=== PATIENT | female | born 1985 | race American Indian/Alaskan Native ===

== ENCOUNTER 2022-04-03 00:18 | Inpatient (IN) | payer OTHER ==
[~2022-04-03 00:18] MED LIST: LACTATED RINGERS 1,000 ML ONE
[2022-04-03 00:36] LABS: Basophils # (Auto) 0.1 K/mm3 (0.0-0.1); Basophils % (Auto) 0.6 % (0.0-1.8); Eosinophils # (Auto) 0.1 K/mm3 (0.0-0.4); Hematocrit 39.9 % (30.3-42.9); Hemoglobin 13.3 gm/dl (10.1-14.3); Lymphocytes % (Auto) 11.4 % (13.4-35.0); Mean Corpuscular HGB Conc 33 % (30-34); Mean Corpuscular Volume 90 fl (79-97); Monocytes # (Auto) 0.8 K/mm3 (0.0-0.8); Monocytes % (Auto) 8.6 % (0.0-7.3); Platelet Count 215 K/mm3 (140-440); Red Blood Count 4.43 M/mm3 (3.65-5.03); Red Cell Distribution Width 14.6 % (13.2-15.2)
[2022-04-03] MEDS ORDERED: ePHEDrine SULFATE 50 MG/1 ML INJ ONE (00:47)
[2022-04-03] MEDS ORDERED: BUPIVACAINE/PF (0.25%) 2.5 MG/ML 10 ML VIAL INFILTRATI ONE (00:50)
--- NOTE | 2022-04-03 01:09 | History and Physical Report ---
History of Present Illness Date of examination: 04/02/22 Date of admission: 04/02/2022 Chief complaint: Contractions and leaking of fluid History of present illness: 36-year-old at 36-2/7 weeks gestation presents to OB triage reporting regular and painful uterine contractions followed by rupture membranes. There is no vaginal bleeding there is good movement. In OB triage, the cervical exam was 9 cm dilated. She is admitted to labor and delivery for management of labor. Past History Past Medical History: no pertinent history Past Surgical History: no surgical history Family/Genetic History: none Social history: no significant social history - Obstetrical History Expected Date of Delivery: 04/28/22 Actual Gestation: 36 Week(s) 3 Day(s) : 6 Para: 1 Hx # Term Pregnancies: 1 Spontaneous Abortions: 4 Medications and Allergies Allergies Allergy/AdvReac Type Severity Reaction Status Date / Time No Known Allergies Allergy Unverified 04/03/22 01:10 Review of Systems All systems: negative - Vital Signs Vital signs: Vital Signs Pulse Pulse Ox 85 98 04/03/22 00:25 04/03/22 00:25 Temp Pulse Resp BP Pulse Ox 97.9 F 81 20 137/70 99 04/03/22 00:28 04/03/22 01:08 04/03/22 00:28 04/03/22 01:08 04/03/22 01:05 - Physical Exam Breasts: Positive: normal Cardiovascular: Regular rate Lungs: Positive: Normal air movement Abdomen: Positive: normal appearance Genitourinary (Female): Positive: normal external genitalia, normal perenium Vulva: both: normal Vagina: Positive: normal moisture Uterus: Positive: enlarged Adnexa: both: normal Anus/Rectum: Positive: normal perianal skin Extremities: Positive: normal Deep Tendon Reflex Grade: Normal +2 - Obstetrical FHR: category 1 Uterine Contraction Monitor Mode: External Cervical Dilatation: 9 Cervical Effacement Percentage: 90 station: -2 Uterine Contraction Frequency (min): 5 Uterine Contraction Pattern: Regular Results Result Diagrams: 04/02/22 23:58 Abnormal lab results 04/02/22 04/03/22 Range/Units 23:58 00:06 Lymph % (Auto) 11.4 L (13.4-35.0) % [place] % (Auto) 8.6 H (0.0-7.3) % Lymph # (Auto) 1.0 L (1.2-5.4) K/mm3 Seg Neutrophils % 78.4 H (40.0-70.0) % Membranes Rupture Positive A (Negative) All other labs normal. Assessment and Plan - Patient Problems (1) 36 weeks gestation of Current Visit: Yes Status: Acute Plan to address problem: care is up-to-date at [facility]. The morning shift nurse is to call the office to obtain records during the morning shift. This patient's GBS status is unknown, and GBS culture was not drawn. As this patient is currently , prescribe penicillin for intrapartum GBS prophylaxis per 2010 CDC MMWR guidelines. (2) labor in third trimester Current Visit: Yes Status: Acute Plan to address problem: Etiology is unknown. At this gestational age, tocolysis and prolongation of latency is not recommended. Allow labor to progress. I anticipate normal spontaneous vaginal delivery. (3) AMA (advanced maternal age) multigravida 35+ Current Visit: Yes Status: Acute Plan to address problem: The patient states that she had a normal first trimester screening.
[2022-04-03] MEDS ORDERED: CARBOPROST TROMETHAMINE 250 MCG/1 ML INJ IM PRN (01:10)
[2022-04-03] MEDS ORDERED: BUTORPHANOL 2 MG/1 ML INJ IV PRN (01:10)
[2022-04-03] MEDS ORDERED: TERBUTALINE 1 MG/1 ML INJ SUB-Q PRN (01:10)
[2022-04-03] MEDS ORDERED: PENICILLIN G POTASSIUM 5 MIL.UNITS in SODIUM CHLORIDE 0.9% 100 ML IV ONE (01:10)
[2022-04-03] MEDS ORDERED: ACETAMINOPHEN 325 MG TAB PO PRN ×2 (01:10→06:17)
[2022-04-03] MEDS ORDERED: miSOPROStol 200 MCG TAB PR PRN (01:10)
[2022-04-03] MEDS ORDERED: ePHEDrine SULFATE 50 MG/1 ML INJ IV PRN ×2 (01:10→01:13)
[2022-04-03] MEDS ORDERED: METHYLERGONOVINE MALEATE 0.2 MG/ML VIAL IM PRN (01:10)
[2022-04-03] MEDS ORDERED: fentaNYL 100 MCG/2 ML INJ IV PRN (01:10)
[2022-04-03] MEDS ORDERED: NALOXONE 0.4 MG/1 ML INJ IV PRN (01:13)
[2022-04-03] MEDS ORDERED: OXYTOCIN DRIP 30,000 MILLIUNITS/500 ML BAG IV ONE (01:13)
[2022-04-03] MEDS ORDERED: LACTATED RINGERS 1,000 ML ONE (01:13)
[2022-04-03] MEDS ORDERED: fentaNYL-BUPIV 2 MCG/ML-0.125% 200 MCG/100 ML BAG EPIDURAL SCH (01:13)
--- NOTE | 2022-04-03 01:21 | Anesthesia Day of Surgery ---
Anesthesia Day of Surgery - Day of Surgery Patient Examined: Yes Patient H&P Reviewed: Yes Patient is NPO: Yes Beta Blockers: No Cardiac Clearance: No Pulmonary Clearance: No Michele's Test: N/A
--- NOTE | 2022-04-03 01:21 | Anesthesia Consultation ---
Anesthesia Consult and Med Hx Date of service: 04/03/22 - Airway Anesthetic Teeth Evaluation: Good ROM Head & Neck: Adequate Mental/Hyoid Distance: Adequate Mallampati Class: Class II Intubation Access Assessment: Probably Good - Pulmonary Exam CTA: Yes - Cardiac Exam Cardiac Exam: RRR - Pre-Operative Health Status ASA Pre-Surgery Classification: ASA2 Proposed Anesthetic Plan: Epidural - Pulmonary Hx Smoking: No Hx Asthma: No Hx Respiratory Symptoms: No SOB: No COPD: No Home Oxygen Therapy: No Hx Pneumonia: No Hx Sleep Apnea: No - Cardiovascular System Hx Hypertension: No Hx Coronary Artery Disease: No Hx Heart Attack/AMI: No Hx Angina: No Hx Percutaneous Transluminal Coronary Angioplasty (PTCA): No Hx Cardia Arrhythmia: No Hx Pacemaker: No Hx Internal Defibrillator: No Hx Valvular Heart Disease: No Hx Heart Murmur: No Hx Peripheral Vascular Disease: No - Central Nervous System Hx Neuromuscular Disorder: No Hx Seizures: No CVA: No Hx Back Pain: No Hx Psychiatric Problems: No - Gastrointestinal Hx Ulcer: No Hx Gastroesophageal Reflux Disease: No - Endocrine Hx Renal Disease: No Hx End Stage Renal Disease: No Hx Cirrhosis: No Hx Liver Disease: No Hx Insulin Dependent Diabetes: No Hx Non-Insulin Dependent Diabetes: No Hx Thyroid Disease: No Hx Hypothyroidism: No Hx Hyperthyroidism: No - Hematic Hx Anemia: No Hx Sickle Cell Disease: No - Other Systems Hx Alcohol Use: No Hx Substance Use: No Hx Cancer: No Hx Obesity: No
--- NOTE | 2022-04-03 01:22 | Progress Note ---
Labor Epidural - Labor Epidural Start Time: 00:58 Stop Time: 01:06 Performed by:: BRANDIE GATICA Procedure: Epidural Requested for Labor Pain. H&P and PT Chart reviewed and consent obtained. Time out performed and the procedure was explained, all questions answered. Patient was placed in a sitting position with monitors applied. The PTs back was prepped and draped in usual sterile fashion. The Skin was localized with 3 mL of 1% lidocaine at L3-L4. A 17-gauge Touhy epidural needle was advanced to MARIAN with saline at 7 cm and no blood/CSF was noted via epidural needle. Epidural catheter was advanced to 12 cm. There was negative aspiration for blood and CSF in the catheter and negative response to a test dose of 3 ml 1.5% lidocaine w/ Epi and a sterile dressing was applied Patient tolerated the procedure well and there were no immediate complications noted.
[2022-04-03] MEDS: LACTATED RINGERS 1,000 ML IV SCH ×2 (01:48→01:53)
[2022-04-03] MEDS ORDERED: OXYTOCIN DRIP 30 UNITS/500 ML BAG IV SCH ×2 (02:00)
[2022-04-03] MEDS ORDERED: PENICILLIN G POTASSIUM 2.5 MIL.UNITS in SODIUM CHLORIDE 0.9% 50 ML IV SCH (05:00)
[2022-04-03] MEDS ORDERED: WITCH HAZEL/ GLYCERIN PAD TP PRN (06:17)
[2022-04-03] MEDS ORDERED: BENZOCAINE/MENTHOL 20/0.5% TOP SPRAY 56 GM TP PRN (06:17)
[2022-04-03] MEDS ORDERED: HYDROcodone/ACETAMINOPHEN 5-325 MG TAB PO PRN (06:17)
[2022-04-03] MEDS ORDERED: LANOLIN/ZINC/DIMETHICONE (LANSINOH) 7 GM TP PRN (06:17)
[2022-04-03] MEDS ORDERED: MAGNESIUM HYDROXIDE (MOM) ORAL LIQD UDC PO PRN (06:17)
--- NOTE | 2022-04-03 06:29 | Procedure Note ---
OB Delivery Note - Delivery Date of Delivery: 04/03/22 Surgeon: VITOR BAIG Estimated blood loss: 300cc - Vaginal Delivery presentation: vertex Delivery position: OA Intrapartum events: labor-<37 weeks Delivery induction: none Delivery monitor: external FHT, external uterine Route of delivery: Delivery placenta: spontaneous Delivery cord: true knot, 3 umbilical vessels Episiotomy: none Delivery laceration: other (Right periurethral laceration extending to the labia minora was repaired with 3-0 Vicryl) Delivery repair: vicryl Anesthesia: local, epidural - Infant A at 1 minute: 7 at 5 minutes: 9 Infant Gender: Female
[2022-04-03] MEDS: IBUPROFEN 800 MG TAB PO SCH ×2 (08:26→20:00)
--- NOTE | 2022-04-03 16:27 | Post Anesthesia Evaluation ---
- Post Anesthesia Evaluation Patient Participated: Yes Airway Patent: Yes Stable Respiratory Function: Yes Nausea/Vomiting: No Temp > 96.8F: Yes Pain Manageable: Yes Adequeate Hydration: Yes Anesthesia Complications: No Block Receding Appropriately: Yes Patient on Ventilator: No
[2022-04-03] MEDS: DOCUSATE SODIUM 100 MG CAP PO SCH (22:00)
[2022-04-04 08:09] LABS: Hematocrit 37.3 % (30.3-42.9); Hemoglobin 12.4 gm/dl (10.1-14.3); Mean Corpuscular HGB Conc 33 % (30-34); Mean Corpuscular Volume 90 fl (79-97); Platelet Count 207 K/mm3 (140-440); Red Blood Count 4.13 M/mm3 (3.65-5.03)
[2022-04-04] MEDS: DOCUSATE SODIUM 100 MG CAP PO SCH ×2 (10:13→23:07)
[2022-04-04] MEDS: IBUPROFEN 800 MG TAB PO SCH ×2 (10:13→23:07)
--- NOTE | 2022-04-04 12:10 | Progress Note ---
Assessment and Plan A: PP Day #1 GDM A1 P: Follow Routine Orders GDM Diet Accuchecks after meals Subjective - Subjective Date of service: 04/04/22 Patient reports: appetite normal, voiding normally, pain well controlled, flatus, ambulating normally Rawlings: doing well, bottle feeding Objective - Vital Signs Latest vital signs: Vital Signs Temp Pulse Resp BP BP Pulse Ox Pulse Ox 04/04/22 08:25 97.4 F L 64 20 106/55 99 04/04/22 08:10 100 04/04/22 04:00 98.6 F 69 16 115/76 04/04/22 00:00 98.5 F 78 16 104/78 04/03/22 20:19 98.7 F 69 18 107/59 100 04/03/22 20:00 100 04/03/22 16:13 98.0 F 65 20 119/62 99 04/03/22 12:13 97.8 F 57 L 20 119/69 98 Intake and Output 04/03/22 04/04/22 04/04/22 22:59 06:59 14:59 Intake Total 660 200 320 Output Total 1800 Balance -1140 200 320 Intake: Oral 460 200 320 Intake, Free Water 200 Output: Urine 1800 Void 1800 Other: Total, Intake Amount 460 200 320 Total, Output Amount 800 # Voids Void 1 1 1 - Exam Breasts: Present: normal Cardiovascular: Present: Regular rate Lungs: Present: Clear to auscultation, Normal air movement Abdomen: Present: normal appearance, soft, normal bowel sounds Uterus: Present: normal, firm, fundal height below umbilicus Extremities: Present: edema (+2 bilateral pedal edema)
[2022-04-05] MEDS: IBUPROFEN 800 MG TAB PO SCH ×2 (06:14→17:04)
--- NOTE | 2022-04-05 07:53 | Progress Note ---
Assessment and Plan A: PPD # 2 - stable P: Discharge home today Discharge instructions given Subjective - Subjective Date of service: 04/05/22 Principal diagnosis: PPD # 2 - stable Patient reports: appetite normal (under bili lights) Objective - Vital Signs Latest vital signs: Vital Signs Temp Pulse Resp BP Pulse Ox Pulse Ox 04/05/22 06:14 98 04/05/22 02:05 98 04/05/22 00:12 98.0 F 73 20 119/66 98 04/05/22 00:10 98 04/04/22 21:20 98 04/04/22 20:00 98 04/04/22 15:53 98.2 F 75 20 119/53 100 04/04/22 08:25 97.4 F L 64 20 106/55 99 04/04/22 08:10 100 Intake and Output 04/04/22 04/05/22 04/05/22 22:59 06:59 14:59 Intake Total 980 360 Balance 980 360 Intake: Oral 980 360 Other: Total, Intake Amount 240 120 # Voids Void 1 1 - Exam Breasts: Present: deferred Cardiovascular: Present: Regular rate Abdomen: Present: soft Vulva: both: normal Uterus: Present: fundal height below umbilicus Extremities: Present: normal Deep Tendon Reflex Grade: Normal +2
--- NOTE | 2022-04-05 07:55 | Discharge Summary ---
Providers - Providers Date of Admission: 04/03/22 01:10 Date of discharge: 04/05/22 Attending physician: VITOR BAIG MD Primary care physician: VITOR BAIG MD Hospitalization Reason for admission: active labor Delivery: Episiotomy: none Laceration: other (periurethral) Other procedures: none complications: none Discharge diagnosis: IUP at term delivered baby: female Hospital course: uneventful Condition at discharge: Good Disposition: 01 HOME / SELF CARE / HOMELESS Plan - Provider Discharge Summary Activity: routine, no sex for 6 weeks, no strenuous exercise Diet: routine Instructions: routine Additional instructions: [] Smoking cessation referral if applicable(refer to patient education folder for contact #) [] Refer to [facility]'s [facility] Booklet Call your doctor immediately for: * Fever > 100.5 * Heavy vaginal bleeding ( >1 pad per hour) * Severe persistent headache * Shortness of breath * Reddened, hot, painful area to leg or breast * Drainage or odor from incision. * Keep incision clean and dry at all times and follow doctor's instructions regarding bathing/showering - Follow up plan Follow up: VITOR BAIG MD [Primary Care Provider] - 6 Weeks
[2022-04-05] MEDS: DOCUSATE SODIUM 100 MG CAP PO SCH (10:35)
[2022-04-05 22:17] VITALS: BP 134/76
== END 2022-04-05 22:05 | disposition home or self-care (01) | DRG 775 ==
LOC: TRG 00:18 → APU 00:19 → LD 00:36 → TRG 01:10 → LD 01:10 → OB 09:36
PROVIDERS: ADMIT Obstetrics & Gynecology Gynecology; ATTEND Obstetrics & Gynecology Gynecology
PROC: 10E0XZZ Delivery of Products of Conception, External Approach (ICD-10-PCS; principal; 2022-04-03)
PROC: 0UQMXZZ Repair Vulva, External Approach (ICD-10-PCS; 2022-04-03)
PROC: 3E0R3BZ Introduction of Anesthetic Agent into Spinal Canal, Percutaneous Approach (ICD-10-PCS; 2022-04-03)
PROC: 00HU33Z Insertion of Infusion Device into Spinal Canal, Percutaneous Approach (ICD-10-PCS; 2022-04-03)
DX: O60.14X0 Preterm labor third trimester with preterm delivery third trimester, not applicable or unspecified (principal); Z37.0 Single live birth; Z3A.36 36 weeks gestation of pregnancy; Z20.822 Contact with and (suspected) exposure to COVID-19; O69.2XX0 Labor and delivery complicated by other cord entanglement, with compression, not applicable or unspecified; O71.82 Other specified trauma to perineum and vulva
CPT/HCPCS: 36415; 82962; 84112; 85025; 85027; 86592; 86850; 86900; 86901; G0378; J3490; J2540; J7120; U0003